=== PATIENT | female | born 1985 | race Two or more races ===

== ENCOUNTER 2017-12-22 20:07 | Inpatient (IN) | payer OTHER ==
[2017-12-22 21:21] LABS: ABS Basophils 0.1 10^3/ul (0-0.2); ABS Eosinophils 0 10^3/ul (0-0.6); ABS Lymphocytes 1.6 10^3/ul (1.0-4.8); ABS Monocytes 0.6 10^3/ul (0-0.8); ABS Neutrophils 14.3 10^3/ul (1.5-7.7); ABS Nucleated RBC 0 10^3/ul; Eosinophil % 0 % (0-6); Hematocrit 41 % (35-47); Hemoglobin 13.7 g/dl (12.0-16.0); Lymphocyte % 9.6 % (25-47); Mean Corpuscular HGB Conc 34 g/dl (31-36); Mean Corpuscular Hemoglobin 28 pg (27-31); Mean Corpuscular Volume 84 fL (80-97); Mean Platelet Volume 9.7 um3 (7.4-10.4); Nucleated Red Blood Cells % 0; Platelet Count 256 10^3/ul (150-450); Red Blood Count 4.83 10^6/ul (4.00-5.40); Red Cell Distribution Width 15 % (10.5-15); White Blood Count 16.7 10^3/ul (3.5-10.8)
--- NOTE | 2017-12-22 22:02 | HP ---
General Information - General Information Maternal Age: 32 Grav: 2 Para: 0 SAB: 0 IEA: 1 Estimated Due Date: 12/23/17 Determined By: LMP Gestational Age in Weeks and Days: 39 Weeks and 6 Days Maternal Blood Type and Rh: A Positive - Results this Serology/RPR Result: Non-Reactive Rubella Result: Immune HBsAg Result: Negative HIV Result: Negative GBS Culture Result: Negative Past Medical History Pertinent Past Medical History: See Records - migraines, fibroids Pertinent Past Surgical History: See Records - ACL, breast bx Pertinent Family History: Non-Contributory - Antepartal Records Antepartal Records: Reviewed, Complicated by: - fibroids, do not appear to obstruct lower uterus Review of Systems Constitutional: Uncomfortable CV Complaint: No Respiratory: Shortness of Breath: No Gastrointestinal: No Nausea/Vomiting Genitourinary: Bleeding - (bloody show), No Dysuria Musculoskeletal: Contractions - Q2-4 Neurological: No Headache Movement: Normal Exam Allergies/Adverse Reactions: Allergies MS Penicillins [Penicillins] Allergy (Intermediate, Verified 12/22/17 20:37) Hives MS Valacyclovir [From Valtrex] Allergy (Verified 12/22/17 20:37) Swelling Of Face,Lips,& Throat normal, afebrile Lab Values - Entire Visit: Laboratory Tests 12/22/17 12/22/17 21:04 21:04 WBC 16.7 H RBC 4.83 Hgb 13.7 Hct 41 MCV 84 MCH 28 MCHC 34 RDW 15 Plt Count 256 MPV 9.7 Neut % (Auto) 85.9 H Lymph % (Auto) 9.6 L [place] % (Auto) 3.7 Eos % (Auto) 0 Baso % (Auto) 0.8 Absolute Neuts (auto) 14.3 H Absolute Lymphs (auto) 1.6 Absolute Monos (auto) 0.6 Absolute Eos (auto) 0 Absolute Basos (auto) 0.1 Absolute Nucleated RBC 0 Nucleated RBC % 0 Blood Type A Positive - Measurements Height: 5 ft 4 in Weight: 160 lb Weight in lbs: [id number] Body Mass Index (BMI): 27.4 Pre- Weight: 138 lb Weight Gained This : 22 lbs and 0 ozs - Exam Breast: Breast Exam Deferred Heart: Normal Rhythm/Heart Sounds HEENT: No Significant Findings Lungs: Clear Bilaterally - Abdominal Exam Abdomen Exam: Non-Tender, Fundal Height Consistent with Dates - irregular contour, EFW 6.5 lbs Targeted Exam Findings Estimated Weight: 6.5 lbs Cervical Exam: 5cm Effacement: 90% Station: 0 Presenting Part: Vertex Membrane Status: Bulging Bleeding/Discharge: Bloody Show EFM Findings - External Monitor Findings Baseline Heart Rate: 140 External Monitor Findings: Accelerations Present, No Pattern of Variable or Late Decelerations, Variability Moderate Contractions: Moderate, Strong Contraction Frequency: Q2-3 min Assessment/Plan - Reason for Visit Reason for Visit: 39+6 wks in active labor, ctx started early this AM but became stronger this afternoon, and more regular around 1900. +bloody show, very reassuring FHT. Declines epidural and AROM at this point. - Plan Plan: Active Labor - Date/Time of Admission Date of Admission: 12/22/17 Time of Admission: 21:00
[2017-12-23] MEDS ORDERED: Oxytocin in LR* 20 UNITS/1,000 ML BAG IVPB ONE (02:52)
[2017-12-23] MEDS ORDERED: Witch Hazel PAD* JAR TOPICAL PRN (03:06)
[2017-12-23] MEDS ORDERED: Acetaminophen TAB* 325 MG PO PRN (03:06)
[2017-12-23] MEDS ORDERED: Dibucaine 1% 28.35 GM TUBE PR PRN (03:06)
--- NOTE | 2017-12-23 03:14 | PROCNOTE ---
[facility] OB: Delivery Note - Delivery A Date of : 12/23/17 Time of : 02:51 Gestational Age in Weeks and Days at Delivery: 40 Weeks and 0 Days Delivery Method: Spontaneous Vaginal Labor: Spontaneous Did Patient attempt ?: N/A, No Previous Amniotic Fluid: Clear Estimated Blood Loss: 250 Anesthesia/Analgesia: Nitrous-Labor Delivered By: Everton Claros - Perineoli Perineal Injury: None/Intact Perineal Repair: None - Events Delivery Events of Note: None Apply - Additional Delivery Notes Additional Delivery Notes: Pt presented in active labor. After a few hours at 5cm dilation, AROM with clear fluid. Pt then progressed well to C/C/+1 and began pushing. Pt pushed for only about 30 min in squatting, then semi-recumbent position. Head delivered in a controlled fashion. Single nuchal cord present. Shoulders delivered easily and body followed. Cord reduced, and baby placed on mother's abdomen. Baby cried quickly and had good tone. Cord clamped and cut by father. IV pitocin given. Intact placenta delivered spontaneously. Fundus firm, bleeding light. Perineum intact.
[2017-12-23] MEDS ORDERED: Oxytocin in LR* 20 UNITS/1,000 ML BAG IVPB SCH (04:00)
[2017-12-23] MEDS: Docusate CAP* 100 MG PO SCH ×3 (08:26→20:33)
[2017-12-23] MEDS ORDERED: Simethicone TAB* 80 MG TAB.CHEW PO SCH (08:30)
[2017-12-24] MEDS: Ibuprofen TAB* 600 MG PO PRN (05:01)
[2017-12-24 07:01] LABS: ABS Basophils 0.1 10^3/ul (0-0.2); ABS Eosinophils 0.1 10^3/ul (0-0.6); ABS Lymphocytes 3.2 10^3/ul (1.0-4.8); ABS Neutrophils 11.6 10^3/ul (1.5-7.7); ABS Nucleated RBC 0 10^3/ul; Eosinophil % 0.4 % (0-6); Hematocrit 34 % (35-47); Hemoglobin 11.4 g/dl (12.0-16.0); Lymphocyte % 19.9 % (25-47); Mean Corpuscular HGB Conc 34 g/dl (31-36); Mean Corpuscular Hemoglobin 29 pg (27-31); Mean Corpuscular Volume 85 fL (80-97); Nucleated Red Blood Cells % 0; Platelet Count 224 10^3/ul (150-450); Red Blood Count 3.98 10^6/ul (4.00-5.40); Red Cell Distribution Width 15 % (10.5-15); White Blood Count 15.9 10^3/ul (3.5-10.8)
[2017-12-24] MEDS: Docusate CAP* 100 MG PO SCH ×3 (08:38→21:50)
[2017-12-24] MEDS ORDERED: Ferrous Gluconate TAB* 324 MG TAB PO SCH (09:00)
--- NOTE | 2017-12-24 11:10 | PTEDU ---
Patient Name: RACHELLE ZEPEDA RACHELLE ZEPEDA selected video: Never Ever Shake a Baby to view on 12/24/2017 at 11:10:00 AM from [facility] [id number]
--- NOTE | 2017-12-24 11:19 | PTEDU ---
Patient Name: RACHELLE ZEPEDA RACHELLE ZEPEDA selected video: BBOB: Nurturing Your Gorgeous &Growing Baby by to view o n 12/24/2017 at 11:19:23 [id number]
[2017-12-25] MEDS: Ibuprofen TAB* 600 MG PO PRN (05:59)
[2017-12-25 07:57] VITALS: BP 101/65
--- NOTE | 2017-12-25 08:58 | PTEDU ---
Patient Name: RACHELLE ZEPEDA RACHELLE ZEPEDA selected video: BBOB: Bonding Through Massage to view on 12/25/2017 at 8:58:14 AM from [id number]
[2017-12-25] MEDS: Docusate CAP* 100 MG PO SCH (10:09)
== END 2017-12-25 13:23 | disposition home or self-care (01) | DRG 775 ==
LOC: MCHOBOUT 20:07 → MCHOB 20:50
PROVIDERS: ADMIT Obstetrics & Gynecology; ATTEND Obstetrics & Gynecology
PROC: 10907ZC Drainage of Amniotic Fluid, Therapeutic from Products of Conception, Via Natural or Artificial Opening (ICD-10-PCS; principal; 2017-12-23)
PROC: 10E0XZZ Delivery of Products of Conception, External Approach (ICD-10-PCS; 2017-12-23)
PROC: 4A1HX4Z Monitoring of Products of Conception, Cardiac Electrical Activity, External Approach (ICD-10-PCS; 2017-12-23)
DX: O69.81X0 Labor and delivery complicated by cord around neck, without compression, not applicable or unspecified (principal); O34.13 Maternal care for benign tumor of corpus uteri, third trimester; D25.9 Leiomyoma of uterus, unspecified; Z37.0 Single live birth; Z88.0 Allergy status to penicillin; Z88.8 Allergy status to other drugs, medicaments and biological substances; Z3A.40 40 weeks gestation of pregnancy
CPT/HCPCS: 36415; 85025; 86850; 86900; 86901; A9270-GY